=== PATIENT | male | born 1970 | race American Indian/Alaskan Native ===

== ENCOUNTER 2020-06-07 21:36 | Emergency (ER) | payer MEDICAID, OTHER ==
--- NOTE | 2020-06-07 21:59 | EDM.PDOC ---
ED HPI GENERAL MEDICAL PROBLEM - General Chief Complaint: ENT Problem Stated Complaint: SORE THROAT, SHORT OF BREATHE Time Seen by Provider: 06/07/20 21:58 Source of Information: Reports: Patient, RN, RN Notes Reviewed History Limitations: Reports: No Limitations - History of Present Illness INITIAL COMMENTS - FREE TEXT/NARRATIVE: Patient is a 49-year-old male who presents to ER with complaint of sore throat and white patches all over the mouth and throat. He states 1 week ago Tuesday he was seen in the clinic at [facility] and was given a penicillin shot. He states he has rapid strep was negative at that time as well. He states the penicillin did help for a few days but pain and white patches in the mouth returned and are worse. Patient states he is a smoker. States he has been swishing with water and salt. Denies any other symptoms such as fever chills, nausea, vomiting, diarrhea. He states he is quite hungry and thirsty but it is difficult and painful to swallow. Onset: Gradual Throat Pain Score (Numeric/FACES): 10 - Related Data Allergies Allergy/AdvReac Type Severity Reaction Status Date / Time No Known Allergies Allergy Verified 06/07/20 21:50 Home Meds: Home Meds Acetaminophen [Tylenol Extra Strength] 1,000 mg PO TID PRN 02/16/14 [History] Past Medical History - Past Health History Medical/Surgical History: Denies Medical/Surgical History Hematologic History: Reports: Iron Deficiency Social & Family History - Tobacco Use Tobacco Use Status *Q: Current Every Day Tobacco User Years of Tobacco use: 25 Packs/Tins Daily: 1.5 - Caffeine Use Caffeine Use: Reports: None - Recreational Drug Use Recreational Drug Use: No ED ROS ENT - Review of Systems Review Of Systems: Comprehensive ROS is negative, except as noted in HPI. ED EXAM, ENT - Physical Exam Exam: See Below Exam Limited By: No Limitations General Appearance: Alert, WD/WN, No Apparent Distress Eye Exam: Bilateral Eye: EOMI, Normal Inspection Ears: Normal External Exam, Hearing Grossly Normal Nose: Normal Inspection Mouth/Throat: Oral Ulcers (Scattered white patches throughout the mouth and throat), Pharyngeal Erythema, Throat Pain, Tonsillar Erythema, Tonsillar Exudates Head: Atraumatic, Normocephalic Neck: Normal Inspection, Supple, Non-Tender, Full Range of Motion Respiratory/Chest: No Respiratory Distress, Lungs Clear, Normal Breath Sounds, No Accessory Muscle Use, Chest Non-Tender Cardiovascular: Normal Peripheral Pulses, Regular Rate, Rhythm, No Edema, No Gallop, No JVD, No Murmur, No Rub GI/Abdominal: Normal Bowel Sounds, Soft, Non-Tender (Male) Exam: Deferred Rectal (Males) Exam: Deferred Back: Normal Inspection, Full Range of Motion Extremities: Normal Inspection, Normal Range of Motion, Non-Tender, No Pedal Edema, Normal Capillary Refill Neurological: Alert, Oriented, CN II-XII Intact, Normal Cognition, Normal Gait, Normal Reflexes, No Motor/Sensory Deficits Psychiatric: Normal Affect, Normal Mood Skin: Warm, Dry, Intact, Normal Color, No Rash Lymphatic: No Adenopathy Course - Vital Signs Last Recorded V/S: Last Vital Signs Temp 98.4 F 06/07/20 21:46 Pulse 124 H 06/07/20 21:46 Resp 20 06/07/20 21:46 BP 121/76 06/07/20 21:46 Pulse Ox 94 L 06/07/20 21:46 - Orders/Labs/Meds Orders: Active Orders 24 hr Category Date Time Status CULTURE STREP A CONFIRMATION [] Stat Lab 06/07/20 21:40 Results STREP SCRN A RAPID W CULT CONF [] Stat Lab 06/07/20 21:40 Results Meds: Medications Discontinued Medications Generic Name Dose Route Start Last Admin Trade Name Gayathri PRN Reason Stop Dose Admin Fluconazole 200 mg 06/07/20 22:11 06/07/20 22:21 Diflucan PO 06/07/20 22:12 200 mg ONETIME ONE Administration Departure - Departure Time of Disposition: 22:15 Disposition: Home, Self-Care 01 Condition: Good Clinical Impression: Oral candidiasis - Discharge Information *PRESCRIPTION DRUG MONITORING PROGRAM REVIEWED*: No *COPY OF PRESCRIPTION DRUG MONITORING REPORT IN PATIENT AVERY: No Instructions: Oral Thrush, Adult, [id number] Forms: ED Department Discharge Additional Instructions: RX: Diflucan, one daily by mouth for 14 days (take with food if possible) Follow up with your primary care facility if no improvement Continue swishing and spitting with water Sepsis Event Note (ED) - Evaluation Sepsis Screening Result: No Definite Risk - Focused Exam Vital Signs: Vital Signs Temp Pulse Resp BP Pulse Ox 06/07/20 21:46 98.4 F 124 H 20 121/76 94 L - My Orders Last 24 Hours: My Active Orders 06/07/20 21:40 CULTURE STREP A CONFIRMATION [RM] Stat STREP SCRN A RAPID W CULT CONF [] Stat - Assessment/Plan Last 24 Hours: My Active Orders 06/07/20 21:40 CULTURE STREP A CONFIRMATION [RM] Stat STREP SCRN A RAPID W CULT CONF [RM] Stat
[2020-06-07] MEDS ORDERED: Fluconazole 100 MG Tab PO ONE (22:11)
[2020-06-07 22:22] VITALS: BP 121/76; PULSE 124
== END 2020-06-07 22:22 | disposition home or self-care (01) ==
LOC: DL.ED 21:36
DX: B37.0 Candidal stomatitis (principal); Z72.0 Tobacco use
CPT/HCPCS: 87081; 87430; 99283; A9270

== ENCOUNTER 2020-06-09 04:57 | Emergency (ER) | payer MEDICAID, OTHER ==
[2020-06-09 05:04] VITALS: BP 125/79; PULSE 115
--- NOTE | 2020-06-09 05:28 | EDM.PDOC ---
ED HPI GENERAL MEDICAL PROBLEM - General Chief Complaint: General Stated Complaint: HANDS CRAMPING, HIPS FEEL LIKE THER GOING TO CRAMP Time Seen by Provider: 06/09/20 05:05 Source of Information: Reports: Patient, RN, RN Notes Reviewed History Limitations: Reports: No Limitations - History of Present Illness INITIAL COMMENTS - FREE TEXT/NARRATIVE: Patient is a 49-year-old male who presents to ER with complaint of bilateral hand cramping that began about 30 minutes prior to arrival. Patient states he was cleaning his kitchen and trying to open something when one of his hand started to cramp, and the other 1 started to cramp. He states he was unable to get the muscle cramps to stop. He did take Tylenol. Upon arrival to the ER, the hands are no longer cramping. He states he does feel as if his hips were going to begin to cramp, but they did not. Patient has been taking Diflucan for the past 2 days for oral candidiasis. When looking at references this is not listed as a side effect of the Diflucan. Onset: Today, Sudden - Related Data Allergies Allergy/AdvReac Type Severity Reaction Status Date / Time No Known Allergies Allergy Verified 06/07/20 21:50 Home Meds: Home Meds Acetaminophen [Tylenol Extra Strength] 1,000 mg PO TID PRN 02/16/14 [History] Past Medical History - Past Health History Medical/Surgical History: Denies Medical/Surgical History Hematologic History: Reports: Iron Deficiency - Infectious Disease History Infectious Disease History: Reports: Novel Coronavirus Social & Family History - Tobacco Use Tobacco Use Status *Q: Current Every Day Tobacco User Years of Tobacco use: 25 Packs/Tins Daily: 1.5 Second Hand Smoke Exposure: Yes - Caffeine Use Caffeine Use: Reports: None - Recreational Drug Use Recreational Drug Use: Yes Drug Use in Last 12 Months: Yes Recreational Drug Type: Reports: Methamphetamine ED ROS GENERAL - Review of Systems Review Of Systems: Comprehensive ROS is negative, except as noted in HPI. ED EXAM, GENERAL - Physical Exam Exam: See Below Exam Limited By: No Limitations General Appearance: Alert, WD/WN, No Apparent Distress, Anxious Eye Exam: Bilateral Eye: EOMI, Normal Inspection Ears: Normal External Exam, Hearing Grossly Normal Nose: Normal Inspection Throat/Mouth: Normal Inspection, Normal Voice, No Airway Compromise Head: Atraumatic, Normocephalic Neck: Normal Inspection, Supple, Non-Tender, Full Range of Motion Respiratory/Chest: No Respiratory Distress, Lungs Clear, Normal Breath Sounds, No Accessory Muscle Use, Chest Non-Tender Cardiovascular: Normal Peripheral Pulses, Regular Rate, Rhythm, No Edema, No Gallop, No JVD, No Murmur, No Rub Peripheral Pulses: 2+: Radial (L), Radial (R) GI/Abdominal: Normal Bowel Sounds, Soft, Non-Tender (Male) Exam: Deferred Rectal (Males) Exam: Deferred Back Exam: Normal Inspection, Full Range of Motion, NT Extremities: Normal Inspection, Normal Range of Motion, Non-Tender, Normal Capillary Refill, No Pedal Edema Neurological: Alert, Oriented, CN II-XII Intact, Normal Cognition, Normal Gait, Normal Reflexes, No Motor/Sensory Deficits Psychiatric: Normal Affect, Normal Mood, Anxious Skin Exam: Warm, Dry, Intact, Normal Color, No Rash Lymphatic: No Adenopathy Course - Vital Signs Last Recorded V/S: Last Vital Signs Temp 98.7 F 06/09/20 05:00 Pulse 115 H 06/09/20 05:00 Resp 18 06/09/20 05:00 BP 125/79 06/09/20 05:00 Pulse Ox 95 06/09/20 05:00 - Re-Assessments/Exams Free Text/Narrative Re-Assessment/Exam: 06/09/20 05:34 Patient states he had labs drawn last week at [facility]. Declines lab draw today to check electrolytes. Departure - Departure Time of Disposition: 05:27 Disposition: Home, Self-Care 01 Condition: Good Clinical Impression: Cramping of hands - Discharge Information *PRESCRIPTION DRUG MONITORING PROGRAM REVIEWED*: No *COPY OF PRESCRIPTION DRUG MONITORING REPORT IN PATIENT AVERY: No Instructions: Muscle Cramps and Spasms, [id number] Referrals: PCP,None [Primary Care Provider] - Forms: ED Department Discharge Additional Instructions: Follow up with your primary care provider for labwork if you would like to have it done Drink plenty of water Continue taking the Diflucan Sepsis Event Note (ED) - Evaluation Sepsis Screening Result: No Definite Risk - Focused Exam Vital Signs: Vital Signs Temp Pulse Resp BP Pulse Ox 06/09/20 05:00 98.7 F 115 H 18 125/79 95
== END 2020-06-09 05:33 | disposition home or self-care (01) ==
LOC: DL.ED 04:57
DX: R25.2 Cramp and spasm (principal); Z72.0 Tobacco use
CPT/HCPCS: 99283

== ENCOUNTER 2020-07-20 20:41 | Emergency (ER) | payer MEDICAID ==
[2020-07-20] MEDS ORDERED: Albuterol/Ipratropium 3.0-0.5 MG/3 ML Neb Soln ONE (20:46)
[2020-07-20 20:47] VITALS: BP 113/67; PULSE 123
[2020-07-20] MEDS ORDERED: Albuterol/Ipratropium 3.0-0.5 MG/3 ML Neb Soln NEB ONE (20:47)
[2020-07-20] MEDS ORDERED: methylPREDNISolone Sodium Succinate 125 MG/2 ML SDV IVPUSH ONE (20:47)
[2020-07-20 21:22] LABS: ANION GAP 14.2 mEq/L (7-13); CHLORIDE,CL 100 mmol/L (98-107); SODIUM,NA 134 mmol/L (136-145)
--- NOTE | 2020-07-20 21:50 | CR ---
PROCEDURE INFORMATION: Exam: XR Chest Exam date and time: 07/20/2020 9:18 PM Age: 49 years old Clinical indication: Shortness of breath and other: Newly diagnosed copd this past week, difficulty breathing past 3 days TECHNIQUE: Imaging protocol: XR of the chest Views: 1 view. COMPARISON: CT Chest wo Cont, Chest wo Cont 07/11/2020 11:26 AM FINDINGS: Lungs: Multifocal patchy airspace opacity is Khadijah throughout both lungs. Some of this is certainly chronic, however, there appears to be increasing focal airspace opacity in the periphery of the right midlung zone. Findings are concerning for possible pneumonia. Pleural spaces: Unremarkable. No pleural effusion. No pneumothorax. Heart/Mediastinum: Unremarkable. No cardiomegaly. Bones/joints: Unremarkable. IMPRESSION: Chronic appearing interstitial change with widespread bronchiectasis and bullous change within the lungs. When compared to the previous CT scan, there is increasing airspace opacity within the periphery of the right midlung zone. Pneumonia is possible.
[2020-07-20] MEDS ORDERED: Piperacillin/Tazobactam 3.375 GM in Sodium Chloride 0.9% 100 ML IV ONE (22:45)
[2020-07-20] MEDS ORDERED: Sodium Chloride 0.9% 1,000 ML IV ONE (22:47)
[2020-07-20] MEDS ORDERED: Iopamidol 755 Mg/ML 100 ML Bottle IVPUSH ONE (22:48)
--- NOTE | 2020-07-20 22:51 | EDM.PDOC ---
ED HPI GENERAL MEDICAL PROBLEM - General Chief Complaint: Respiratory Problem Stated Complaint: COPD, NOT GETTING ENOUGH AIR Time Seen by Provider: 07/20/20 20:45 Source of Information: Reports: Patient, Old Records, RN, RN Notes Reviewed History Limitations: Reports: Respiratory Distress - History of Present Illness INITIAL COMMENTS - FREE TEXT/NARRATIVE: Patient presents to the ED via personal vehicle with complaints of shortness of breath. The patient states he was diagnosed with COPD about five days ago, 07/16/20, and was scheduled for appointments in [place] to start medications. He reports the shortness of breath has progressively worsened over the past three days; he is not on any inhalers or nebulizer treatments. He denies fever, shaking chills, vision changes, headache, dyspepsia, nausea, vomiting, or diarrhea. He does attest to chest tightness and palpitations. He states he has not smoked a cigarette since his COPD diagnosis and was a previous pack-a-day smoker. He denies alcohol or recreational drug use. The patient states he had an active COVID infection in April 2020; he has not received a COVID vaccination at this time. - Related Data Allergies Allergy/AdvReac Type Severity Reaction Status Date / Time No Known Allergies Allergy Verified 06/07/20 21:50 Home Meds: Home Meds . [No Known Home Meds] 07/20/20 [History] Past Medical History - Past Health History Medical/Surgical History: Denies Medical/Surgical History Respiratory History: Reports: COPD Hematologic History: Reports: Iron Deficiency - Infectious Disease History Infectious Disease History: Reports: Novel Coronavirus Social & Family History - Tobacco Use Tobacco Use Status *Q: Former Tobacco User Used Tobacco, but Quit: Yes Month/Year Tobacco Last Used: june 2020 Second Hand Smoke Exposure: No - Caffeine Use Caffeine Use: Reports: None - Recreational Drug Use Recreational Drug Use: No ED ROS GENERAL - Review of Systems Review Of Systems: Comprehensive ROS is negative, except as noted in HPI. ED EXAM, GENERAL - Physical Exam Exam: See Below Exam Limited By: Respiratory Distress General Appearance: Alert, Anxious, Moderate Distress (Increased respiratory effort) Eye Exam: Bilateral Eye: EOMI, Normal Inspection, PERRL (3mm) Ears: Normal External Exam, Normal Canal, Hearing Grossly Normal, Other (Cerumen impaction, bilaterally) Ear Exam: Bilateral Ear: Auricle Normal, Canal Normal, Other (Cerumen impaction) Nose: Normal Inspection, Normal Mucosa, No Blood Throat/Mouth: Normal Inspection, Normal Voice, No Airway Compromise, Other (+2 tonsillar swelling; No exudates or erythema) Head: Atraumatic, Normocephalic Neck: Normal Inspection, Supple, Non-Tender, Full Range of Motion. No: Lymphadenopathy (L), Lymphadenopathy (R), Tender Lateral, Tender Midline Respiratory/Chest: Respiratory Distress, Decreased Breath Sounds, Accessory Muscle Use. No: Crackles, Rales, Rhonchi, Wheezing, Stridor Cardiovascular: Normal Peripheral Pulses, Regular Rate, Rhythm, No Edema, No Gallop, No JVD, No Murmur, No Rub, Tachycardia Peripheral Pulses: 2+: Radial (L), Radial (R) GI/Abdominal: Normal Bowel Sounds, Soft, Non-Tender, No Distention, No Abnormal Bruit, No Mass, Pelvis Stable (Male) Exam: Deferred Rectal (Males) Exam: Deferred Back Exam: Normal Inspection, Full Range of Motion. No: CVA Tenderness (L), CVA Tenderness (R) Extremities: Normal Inspection, Normal Range of Motion, Non-Tender, Normal Capillary Refill, No Pedal Edema Neurological: Alert, Oriented, CN II-XII Intact, Normal Cognition, No Motor/Sensory Deficits Psychiatric: Anxious Skin Exam: Warm, Intact, No Rash, Diaphoretic, Pallor. No: Ecchymosis, Erythema, Jaundice, Mottled, Petechiae #1 Interpretation EKG Date: 07/21/20 Time: 21:03 Rhythm: Other (Sinus Tachycardia) Rate (Beats/Min): 110 Holden: Normal P-Wave: Present QRS: Normal ST-T: Normal QT: Normal Comparison: NA - No Prior EKG EKG Interpretation Comments: Sinus Tachycardia; No evidence of myocardial ischemia. Course - Vital Signs Last Recorded V/S: Last Vital Signs Temp 100.2 F 07/20/20 20:44 Pulse 123 H 07/20/20 20:44 Resp 24 H 07/20/20 20:44 BP 113/67 07/20/20 20:44 Pulse Ox 96 07/20/20 20:44 - Orders/Labs/Meds Orders: Active Orders 24 hr Category Date Time Status EKG Documentation Completion [RC] STAT Care 04/04/21 20:48 Active RT Aerosol Therapy [RC] ASDIRECTED Care 07/20/20 20:47 Active Labs: Laboratory Tests 07/20/20 07/20/20 07/20/20 Range/Units 20:55 20:55 20:55 WBC 4.4 L (5.0-10.0) 10^3/uL RBC 4.00 L (4.6-6.2) 10^6/uL Hgb 10.8 L (14.0-18.0) g/dL Hct 32.1 L (40.0-54.0) % MCV 80.3 (80-100) fL MCH 27.0 (27.0-34.0) pg MCHC 33.6 (33.0-35.0) g/dL Plt Count 362 (150-450) 10^3/uL Neut % (Auto) 58.7 (42.2-75.2) % Lymph % (Auto) 23.6 (20.5-50.1) % [place] % (Auto) 14.3 H (2-8) % Eos % (Auto) 3.2 H (1.0-3.0) % Baso % (Auto) 0.2 (0.0-1.0) % D-Dimer, Quantitative (0-400) ng/mL VBG pH (7.31-7.41) VBG pCO2 (41-51) mmHg VBG pO2 (35-42) mmHg VBG HCO3 (19-25) mmol/l VBG O2 Saturation (60-80) % VBG Base Excess ((-2)-(+3)) mmol/l O2 Delivery Device Sodium 134 L (136-145) mmol/L Potassium 4.2 (3.5-5.1) mmol/L Chloride 100 (98-107) mmol/L Carbon Dioxide 24 (21-32) mmol/L Anion Gap 14.2 H (7-13) mEq/L BUN 10 (7-18) mg/dL Creatinine 0.92 (0.70-1.30) mg/dL Est Cr Clr Drug Dosing 102.61 mL/min Estimated GFR (MDRD) > 60 BUN/Creatinine Ratio 10.9 (No establ ref range) Glucose 90 (74-99) mg/dL Lactic Acid 1.4 (0.4-2.0) mmol/L Calcium 7.7 L (8.5-10.1) mg/dL Total Bilirubin 0.3 (0.2-1.0) mg/dL AST 47 H (15-37) U/L ALT 32 (16-63) U/L Alkaline Phosphatase 120 H (46-116) U/L Troponin I < 0.017 (0.000-0.056) ng/mL Total Protein 6.6 (6.4-8.2) g/dL Albumin 1.6 L (3.4-5.0) g/dL Globulin 5.0 Albumin/Globulin Ratio 0.32 Urine Color (YELLOW) Urine Appearance (CLEAR) Urine pH (5.0-9.0) Ur Specific Adams (1.005-1.030) Urine Protein (NEGATIVE) Urine Glucose (UA) (NEGATIVE) Urine Ketones (NEGATIVE) Urine Occult Blood (NEGATIVE) Urine Nitrite (NEGATIVE) Urine Bilirubin (NEGATIVE) Urine Urobilinogen (0.2-1.0) mg/dL Ur Leukocyte Esterase (NEGATIVE) Influenza Type A RNA (NEGATIVE) Influenza Type B RNA (NEGATIVE) SARS-CoV-2 RNA (MARY) (NEGATIVE) 07/20/20 07/20/20 07/20/20 Range/Units 20:55 22:31 23:11 WBC (5.0-10.0) 10^3/uL RBC (4.6-6.2) 10^6/uL Hgb (14.0-18.0) g/dL Hct (40.0-54.0) % MCV (80-100) fL MCH (27.0-34.0) pg MCHC (33.0-35.0) g/dL Plt Count (150-450) 10^3/uL Neut % (Auto) (42.2-75.2) % Lymph % (Auto) (20.5-50.1) % [place] % (Auto) (2-8) % Eos % (Auto) (1.0-3.0) % Baso % (Auto) (0.0-1.0) % D-Dimer, Quantitative 1140 H (0-400) ng/mL VBG pH (7.31-7.41) VBG pCO2 (41-51) mmHg VBG pO2 (35-42) mmHg VBG HCO3 (19-25) mmol/l VBG O2 Saturation (60-80) % VBG Base Excess ((-2)-(+3)) mmol/l O2 Delivery Device Sodium (136-145) mmol/L Potassium (3.5-5.1) mmol/L Chloride (98-107) mmol/L Carbon Dioxide (21-32) mmol/L Anion Gap (7-13) mEq/L BUN (7-18) mg/dL Creatinine (0.70-1.30) mg/dL Est Cr Clr Drug Dosing mL/min Estimated GFR (MDRD) BUN/Creatinine Ratio (No establ ref range) Glucose (74-99) mg/dL Lactic Acid (0.4-2.0) mmol/L Calcium (8.5-10.1) mg/dL Total Bilirubin (0.2-1.0) mg/dL AST (15-37) U/L ALT (16-63) U/L Alkaline Phosphatase (46-116) U/L Troponin I (0.000-0.056) ng/mL Total Protein (6.4-8.2) g/dL Albumin (3.4-5.0) g/dL Globulin Albumin/Globulin Ratio Urine Color Yellow (YELLOW) Urine Appearance Clear (CLEAR) Urine pH 6.5 (5.0-9.0) Ur Specific Adams 1.020 (1.005-1.030) Urine Protein Negative (NEGATIVE) Urine Glucose (UA) Negative (NEGATIVE) Urine Ketones Negative (NEGATIVE) Urine Occult Blood Negative (NEGATIVE) Urine Nitrite Negative (NEGATIVE) Urine Bilirubin Negative (NEGATIVE) Urine Urobilinogen 4.0 H (0.2-1.0) mg/dL Ur Leukocyte Esterase Negative (NEGATIVE) Influenza Type A RNA Negative (NEGATIVE) Influenza Type B RNA Negative (NEGATIVE) SARS-CoV-2 RNA (MARY) Negative (NEGATIVE) 07/20/20 Range/Units 23:34 WBC (5.0-10.0) 10^3/uL RBC (4.6-6.2) 10^6/uL Hgb (14.0-18.0) g/dL Hct (40.0-54.0) % MCV (80-100) fL MCH (27.0-34.0) pg MCHC (33.0-35.0) g/dL Plt Count (150-450) 10^3/uL Neut % (Auto) (42.2-75.2) % Lymph % (Auto) (20.5-50.1) % [place] % (Auto) (2-8) % Eos % (Auto) (1.0-3.0) % Baso % (Auto) (0.0-1.0) % D-Dimer, Quantitative (0-400) ng/mL VBG pH 7.50 H (7.31-7.41) VBG pCO2 27 L (41-51) mmHg VBG pO2 49 H (35-42) mmHg VBG HCO3 21 (19-25) mmol/l VBG O2 Saturation 87 H (60-80) % VBG Base Excess -0.7 ((-2)-(+3)) mmol/l O2 Delivery Device Room air Sodium (136-145) mmol/L Potassium (3.5-5.1) mmol/L Chloride (98-107) mmol/L Carbon Dioxide (21-32) mmol/L Anion Gap (7-13) mEq/L BUN (7-18) mg/dL Creatinine (0.70-1.30) mg/dL Est Cr Clr Drug Dosing mL/min Estimated GFR (MDRD) BUN/Creatinine Ratio (No establ ref range) Glucose (74-99) mg/dL Lactic Acid (0.4-2.0) mmol/L Calcium (8.5-10.1) mg/dL Total Bilirubin (0.2-1.0) mg/dL AST (15-37) U/L ALT (16-63) U/L Alkaline Phosphatase (46-116) U/L Troponin I (0.000-0.056) ng/mL Total Protein (6.4-8.2) g/dL Albumin (3.4-5.0) g/dL Globulin Albumin/Globulin Ratio Urine Color (YELLOW) Urine Appearance (CLEAR) Urine pH (5.0-9.0) Ur Specific [place] (1.005-1.030) Urine Protein (NEGATIVE) Urine Glucose (UA) (NEGATIVE) Urine Ketones (NEGATIVE) Urine Occult Blood (NEGATIVE) Urine Nitrite (NEGATIVE) Urine Bilirubin (NEGATIVE) Urine Urobilinogen (0.2-1.0) mg/dL Ur Leukocyte Esterase (NEGATIVE) Influenza Type A RNA (NEGATIVE) Influenza Type B RNA (NEGATIVE) SARS-CoV-2 RNA (MARY) (NEGATIVE) Meds: Medications Discontinued Medications Generic Name Dose Route Start Last Admin Trade Name Gayathri PRN Reason Stop Dose Admin Albuterol/Ipratropium 3 ml 07/20/20 20:47 07/20/20 20:48 Albuterol/Ipratropium 3.0-0.5 Mg/3 Ml Neb Soln NEB 07/20/20 20:48 3 ml ONETIME ONE Administration Albuterol/Ipratropium Confirm 07/20/20 20:46 07/20/20 20:52 Albuterol/Ipratropium 3.0-0.5 Mg/3 Ml Neb Soln Administered 07/20/20 20:47 Not Given Dose 3 ml .ROUTE .STK-MED ONE Piperacillin Sod/Tazobactam 100 mls @ 200 mls/hr 07/20/20 22:45 07/20/20 23:00 Sod 3.375 gm/ Sodium Chloride IV 07/20/20 23:14 200 mls/hr ONETIME ONE Administration Vancomycin HCl 1.25 gm/ Sodium 250 mls @ 167 mls/hr 07/20/20 22:46 07/20/20 23:46 Chloride IV 07/21/20 00:15 167 mls/hr ONETIME ONE Administration Sodium Chloride 1,000 mls @ 999 mls/hr 07/20/20 22:47 07/20/20 22:55 Normal Saline IV 07/20/20 23:47 999 mls/hr .BOLUS ONE Administration Iopamidol 100 ml 07/20/20 22:48 07/20/20 23:14 Iopamidol 755 Mg/Ml 100 Ml Bottle IVPUSH 07/20/20 22:49 100 ml ONETIME ONE Administration Methylprednisolone Sodium Succinate 125 mg 07/20/20 20:47 07/20/20 20:57 Methylprednisolone Sodium Succinate 125 Mg/2 Ml Sdv IVPUSH 07/20/20 20:48 125 mg ONETIME ONE Administration - Re-Assessments/Exams Free Text/Narrative Re-Assessment/Exam: 07/21/20 Patient reports minimal improvement in work of breathing following DuoNeb and Solu-Medrol 125mg IVP. NS 1L bolus initiated. Review of minimal available chart from [facility] reveals the patient will be seen by Dr. Leiva in ID in a few days to review treatment for HIV as well as pulmonary disease. Patient attests to recent HIV diagnosis. CXR revealed previously noted bilateral chronic bronchiectasis with a worsening opacity in the right mid-lung; cannot r/o pneumonia. WBC 4.4, RBC 4.0, Hgb 10.8; no left shift appreciated in CBC. Electrolytes WNL on CMP; Kidney function appropriate. Given presentation, history, and possible pneumonia case discussed with Dr. Sandoval who kindly agreed to accept patient for inpatient admission. Dr. Sandoval requesting d-dimer and CT for PE r/o as we are awaiting transport. Will start patient on Zosyn and Vanco as well as an additional liter of NS. Plan of care discussed with patient who verbalized understanding and agreement. Departure - Departure Time of Disposition: 00:45 Disposition: DC/Tfer to [facility] 02 Condition: Fair Clinical Impression: Elevated d-dimer Sepsis Qualifiers: Sepsis type: sepsis due to unspecified organism Sepsis acute organ dysfunction status: unspecified Qualified Code(s): A41.9 - Sepsis, unspecified organism Pneumonia Qualifiers: Pneumonia type: due to unspecified organism Laterality: right Lung location: middle lobe of lung Qualified Code(s): J18.9 - Pneumonia, unspecified organism - Discharge Information Referrals: PCP,None [Primary Care Provider] - Forms: ED Department Discharge, Interfacility Transfer [facility] Sepsis Event Note (ED) - Evaluation Sepsis Screening Result: No Definite Risk - Focused Exam Vital Signs: Vital Signs Temp Pulse Resp BP Pulse Ox 07/20/20 20:44 100.2 F 123 H 24 H 113/67 96 - My Orders Last 24 Hours: My Active Orders 07/20/20 20:47 RT Aerosol Therapy [RC] ASDIRECTED 07/20/20 20:48 EKG Documentation Completion [RC] STAT - Assessment/Plan Last 24 Hours: My Active Orders 07/20/20 20:47 RT Aerosol Therapy [RC] ASDIRECTED 07/20/20 20:48 EKG Documentation Completion [RC] STAT
[2020-07-20 23:26] LABS: CORONAVIRUS COVID-19 NAA NEGATIVE (NEGATIVE)
[2020-07-20 23:44] LABS: O2 DELIVERY DEVICE ROOM AIR
[2020-07-20 23:45] LABS: O2 SATURATION VENOUS 87 % (60-80); PCO2 VENOUS 27 mmHg (41-51); PO2 VENOUS 49 mmHg (35-42)
[2020-07-20 23:46] LABS: BASE EXCESS VENOUS -0.7 mmol/l ((-2)-(+3)); BICARBONATE,VENOUS 21 mmol/l (19-25)
--- NOTE | 2020-07-21 00:32 | CT ---
PROCEDURE INFORMATION: Exam: CTA Chest With Contrast Exam date and time: 07/20/2020 11:34 PM Age: 49 years old Clinical indication: Shortness of breath and other: D-dimer 1140; Additional info: R/O pe TECHNIQUE: Imaging protocol: Computed tomographic angiography of the chest with contrast. Radiation optimization: All CT scans at this facility use at least one of these dose optimization techniques: automated exposure control; mA and/or kV adjustment per patient size (includes targeted exams where dose is matched to clinical indication); or iterative reconstruction. Contrast material: [id number]; Contrast volume: 71 ml; Contrast route: INTRAVENOUS (IV); COMPARISON: CT Chest wo Cont 07/11/2020 11:26 AM FINDINGS: Pulmonary arteries: Normal. No pulmonary emboli. Aorta: Unremarkable. No aortic aneurysm. No aortic dissection. Lungs: Redemonstration of extensive architectural distortion with bronchiectasis and cystic changes predominantly involving upper lobes. Progressive airspace disease predominantly involving right lung with increasing airspace and ground-glass opacities. Stable centrilobular pulmonary nodules in the bilateral lower lobes as well as the right middle lobe. Pleural spaces: Unremarkable. No pneumothorax. No pleural effusion. Heart: Unremarkable. No cardiomegaly. No pericardial effusion. Lymph nodes: Calcified left hilar lymph nodes. Gallbladder and bile ducts: Cholelithiasis. No specific evidence of acute cholecystitis. Bones/joints: Mild multilevel degenerative disease of the thoracic spine. Soft tissues: Unremarkable. IMPRESSION: No acute pulmonary embolic disease. Progressive airspace disease predominantly involving right lung with increasing airspace and ground-glass opacities. Stable centrilobular pulmonary nodules in the bilateral lower lobes as well as the right middle lobe. Redemonstration of extensive architectural distortion with bronchiectasis and cystic changes predominantly involving upper lobes.
== END 2020-07-21 00:34 ==
LOC: DL.ED 20:41
DX: A41.9 Sepsis, unspecified organism (principal); R65.20 Severe sepsis without septic shock; J18.9 Pneumonia, unspecified organism; R79.1 Abnormal coagulation profile; J44.9 Chronic obstructive pulmonary disease, unspecified; H61.23 Impacted cerumen, bilateral; Z20.822 Contact with and (suspected) exposure to COVID-19; Z87.891 Personal history of nicotine dependence
CPT/HCPCS: 0240U; 36415; 71045; 71260; 80053; 81003; 82803; 83605; 84484; 85025; 85379; 93005; 93010; 96365; 96367; 96375; 99284; 99285-25; J2543; J2930; J3370; J7030; J7050; J7620-GY; Q9967

== ENCOUNTER 2020-07-23 04:52 | Emergency (ER) | payer MEDICAID ==
[2020-07-23] MEDS ORDERED: methylPREDNISolone Sodium Succinate 125 MG/2 ML SDV IVPUSH ONE (05:11)
[2020-07-23] MEDS ORDERED: Albuterol/Ipratropium 3.0-0.5 MG/3 ML Neb Soln NEB ONE (05:11)
[2020-07-23 05:15] VITALS: BP 114/75; PULSE 115
--- NOTE | 2020-07-23 05:23 | EDM.PDOC ---
<Sue Jones - Last Filed: 07/23/20 06:36> ED HPI GENERAL MEDICAL PROBLEM - General Chief Complaint: Respiratory Problem Time Seen by Provider: 07/23/20 05:00 Source of Information: Reports: Patient, EMS, EMS Notes Reviewed, RN, RN Notes Reviewed History Limitations: Reports: Respiratory Distress - History of Present Illness INITIAL COMMENTS - FREE TEXT/NARRATIVE: Patient is a 49-year-old male who presents to ER per [facility] with complaint of shortness of breath. Patient was seen in the ER on July 20 and transferred to [place] at that time. Patient states he is newly diagnosed with HIV and COPD. Was found to have pneumonia on July 20 as well as a mass in both lungs. Patient states he had Covid in April and has not received his vaccinations yet. Patient states he did have a thoracentesis done where they drained quite a bit of fluid from his lungs. Patient states he was told that he could eat after that procedure, and never did receive any food. He states he was very hungry and he left AMA. Patient states he got to his home around midnight this evening and states he was doing fine with the breathing until he got home. He states at that time he became very short of breath. States he has a productive cough. Upon EMS arrival, patient was 88% on room air. Currently on 4 L of oxygen, patient is 94%. Patient denies any recent fever chills, nausea, vomiting, diarrhea. Onset: Gradual - Related Data Allergies Allergy/AdvReac Type Severity Reaction Status Date / Time No Known Allergies Allergy Verified 07/23/20 06:40 Home Meds: Home Meds . [No Known Home Meds] 07/20/20 [History] Past Medical History - Past Health History Medical/Surgical History: Denies Medical/Surgical History Respiratory History: Reports: COPD Hematologic History: Reports: Iron Deficiency Immunologic History: Reports: HIV - Infectious Disease History Infectious Disease History: Reports: Novel Coronavirus Social & Family History - Tobacco Use Tobacco Use Status *Q: Current Status Unknown Second Hand Smoke Exposure: No - Caffeine Use Caffeine Use: Reports: None - Recreational Drug Use Recreational Drug Use Frequency: Patient Refuses To Answer ED ROS GENERAL - Review of Systems Review Of Systems: Comprehensive ROS is negative, except as noted in HPI. ED EXAM, GENERAL - Physical Exam Exam: See Below Exam Limited By: Respiratory Distress General Appearance: Alert, WD/WN, Anxious, Moderate Distress Eye Exam: Bilateral Eye: EOMI, Normal Inspection Ears: Normal External Exam, Hearing Grossly Normal Nose: Normal Inspection Throat/Mouth: Normal Inspection, Normal Voice, No Airway Compromise Head: Atraumatic, Normocephalic Neck: Normal Inspection, Supple, Non-Tender, Full Range of Motion Respiratory/Chest: Respiratory Distress, Decreased Breath Sounds, Accessory Muscle Use Cardiovascular: Normal Peripheral Pulses, Regular Rate, Rhythm, No Edema, No Gallop, No JVD, No Murmur, No Rub, Tachycardia Peripheral Pulses: 2+: Radial (L), Radial (R) GI/Abdominal: Normal Bowel Sounds, Soft, Non-Tender (Male) Exam: Deferred Rectal (Males) Exam: Deferred Back Exam: Normal Inspection, Full Range of Motion, NT Extremities: Normal Inspection, Normal Range of Motion, Non-Tender, Normal Capillary Refill, No Pedal Edema Neurological: Alert, Oriented, CN II-XII Intact, Normal Cognition, Normal Gait, Normal Reflexes, No Motor/Sensory Deficits Psychiatric: Normal Affect, Normal Mood, Anxious Skin Exam: Warm, Dry, Intact, Normal Color, No Rash Lymphatic: No Adenopathy Course - Radiology Interpretation Free Text/Narrative:: Chest xray: PROCEDURE INFORMATION: Exam: XR Chest Exam date and time: 07/23/2020 5:43 AM Age: 49 years old Clinical indication: Other: Chest pain TECHNIQUE: Imaging protocol: XR of the chest. Views: 1 view. COMPARISON: CR Chest 1V Frontal 07/20/2020 9:18 PM FINDINGS: Lungs: Stable-mild increase in diffuse interstitial opacities. Stable bullous changes present in the upper lobes. Pleural spaces: Unremarkable. No pleural effusion. No pneumothorax. Heart/Mediastinum: Unremarkable. No cardiomegaly. Bones/joints: Unremarkable. IMPRESSION: Stable-mild increase in diffuse interstitial opacities. Thank you for allowing us to participate in the care of your patient. Dictated and Authenticated by: Jose Lane DO 07/23/2020 6:00 AM Central Time ([place] & [place]) see rad report - Re-Assessments/Exams Free Text/Narrative Re-Assessment/Exam: 07/23/20 06:49 Discussed patient case with Dr. Perez who agreed to accept the patient for transfer to . Departure - Departure Disposition: DC/Tfer to [facility] 02 Condition: Serious Clinical Impression: Respiratory distress COPD (chronic obstructive pulmonary disease) Qualifiers: COPD type: unspecified COPD Qualified Code(s): J44.9 - Chronic obstructive pulmonary disease, unspecified HIV (human immunodeficiency virus infection) Qualifiers: HIV symptom status: unspecified Qualified Code(s): B20 - Human immunodeficiency virus [HIV] disease - Discharge Information *PRESCRIPTION DRUG MONITORING PROGRAM REVIEWED*: No *COPY OF PRESCRIPTION DRUG MONITORING REPORT IN PATIENT AVERY: No Forms: ED Department Discharge, Interfacility Transfer EMTALA Sepsis Event Note (ED) - Evaluation Sepsis Screening Result: No Definite Risk <Sukhwinder Hutton - Last Filed: 07/23/20 07:45> Course - Vital Signs Last Recorded V/S: Last Vital Signs Temp 99.8 F 07/23/20 04:53 Pulse 115 H 07/23/20 04:53 Resp 22 H 07/23/20 04:53 BP 114/75 07/23/20 04:53 Pulse Ox 97 07/23/20 04:53 - Orders/Labs/Meds Orders: Active Orders 24 hr Category Date Time Status RT Aerosol Therapy [RC] ASDIRECTED Care 07/23/20 05:12 Active DRUG SCREEN URINE BIORAD [URCHEM] Stat Lab 07/23/20 06:46 Ordered URINALYSIS W/MICROSCOPIC [UA W/MICROSCOPIC] [URIN] Stat Lab 07/23/20 06:46 O rdered Labs: Laboratory Tests 07/23/20 07/23/20 07/23/20 Range/Units 05:18 05:18 05:18 WBC 9.8 (5.0-10.0) 10^3/uL RBC 3.68 L (4.6-6.2) 10^6/uL Hgb 10.0 L (14.0-18.0) g/dL Hct 30.1 L (40.0-54.0) % MCV 81.8 (80-100) fL MCH 27.2 (27.0-34.0) pg MCHC 33.2 (33.0-35.0) g/dL Plt Count 435 (150-450) 10^3/uL Neut % (Auto) 87.5 H (42.2-75.2) % Lymph % (Auto) 5.2 L (20.5-50.1) % [place] % (Auto) 7.2 (2-8) % Eos % (Auto) 0.0 L (1.0-3.0) % Baso % (Auto) 0.1 (0.0-1.0) % ABG pH (7.35-7.45) ABG pCO2 (35-45) mmHg ABG pO2 (70-100) mmHg ABG HCO3 (22-26) mmol/L ABG O2 Saturation (95-100) % ABG Base Excess ((-2)-(+3)) mmol/L Lonnie Test O2 Delivery Device Sodium 139 (136-145) mmol/L Potassium 2.9 L (3.5-5.1) mmol/L Chloride 104 (98-107) mmol/L Carbon Dioxide 22 (21-32) mmol/L Anion Gap 15.9 H (7-13) mEq/L BUN 11 (7-18) mg/dL Creatinine 0.87 (0.70-1.30) mg/dL Est Cr Clr Drug Dosing 118.63 mL/min Estimated GFR (MDRD) > 60 BUN/Creatinine Ratio 12.6 (No establ ref range) Glucose 74 (70-99) mg/dL Lactic Acid 3.5 H* (0.4-2.0) mmol/L Calcium 7.4 L (8.5-10.1) mg/dL Magnesium (1.8-2.4) mg/dL Total Bilirubin 0.5 (0.2-1.0) mg/dL AST 66 H (15-37) U/L ALT 53 (16-63) U/L Alkaline Phosphatase 89 (46-116) U/L B-Natriuretic Peptide 34 (0-100) pg/ml Total Protein 5.6 L (6.4-8.2) g/dL Albumin 1.6 L (3.4-5.0) g/dL Globulin 4.0 Albumin/Globulin Ratio 0.40 07/23/20 07/23/20 Range/Units 05:18 06:30 WBC (5.0-10.0) 10^3/uL RBC (4.6-6.2) 10^6/uL Hgb (14.0-18.0) g/dL Hct (40.0-54.0) % MCV (80-100) fL MCH (27.0-34.0) pg MCHC (33.0-35.0) g/dL Plt Count (150-450) 10^3/uL Neut % (Auto) (42.2-75.2) % Lymph % (Auto) (20.5-50.1) % [place] % (Auto) (2-8) % Eos % (Auto) (1.0-3.0) % Baso % (Auto) (0.0-1.0) % ABG pH 7.45 (7.35-7.45) ABG pCO2 29 L (35-45) mmHg ABG pO2 64 L (70-100) mmHg ABG HCO3 20.0 L (22-26) mmol/L ABG O2 Saturation 93 L (95-100) % ABG Base Excess -3 L ((-2)-(+3)) mmol/L Lonnie Test Performed O2 Delivery Device Nasal cannula Sodium (136-145) mmol/L Potassium (3.5-5.1) mmol/L Chloride (98-107) mmol/L Carbon Dioxide (21-32) mmol/L Anion Gap (7-13) mEq/L BUN (7-18) mg/dL Creatinine (0.70-1.30) mg/dL Est Cr Clr Drug Dosing mL/min Estimated GFR (MDRD) BUN/Creatinine Ratio (No establ ref range) Glucose (70-99) mg/dL Lactic Acid (0.4-2.0) mmol/L Calcium (8.5-10.1) mg/dL Magnesium 1.6 L (1.8-2.4) mg/dL Total Bilirubin (0.2-1.0) mg/dL AST (15-37) U/L ALT (16-63) U/L Alkaline Phosphatase (46-116) U/L B-Natriuretic Peptide (0-100) pg/ml Total Protein (6.4-8.2) g/dL Albumin (3.4-5.0) g/dL Globulin Albumin/Globulin Ratio Meds: Medications Discontinued Medications Generic Name Dose Route Start Last Admin Trade Name Freq PRN Reason Stop Dose Admin Albuterol/Ipratropium 3 ml 07/23/20 05:11 07/23/20 05:22 Albuterol/Ipratropium 3.0-0.5 Mg/3 Ml Neb Soln NEB 07/23/20 05:12 3 ml ONETIME ONE Administration Potassium Chloride 10 meq/ 100 mls @ 100 mls/hr 07/23/20 05:49 07/23/20 06:14 Premix IV 07/23/20 06:48 100 mls/hr ONETIME ONE Administration Methylprednisolone Sodium Succinate 125 mg 07/23/20 05:11 07/23/20 05:22 Methylprednisolone Sodium Succinate 125 Mg/2 Ml Sdv IVPUSH 07/23/20 05:12 125 mg ONETIME ONE Administration Departure - Departure Time of Disposition: 07:45 Sepsis Event Note (ED) - Focused Exam Vital Signs: Vital Signs Temp Pulse Resp BP Pulse Ox 07/23/20 04:53 99.8 F 115 H 22 H 114/75 97
[2020-07-23 05:40] LABS: ANION GAP 15.9 mEq/L (7-13); CHLORIDE,CL 104 mmol/L (98-107); SODIUM,NA 139 mmol/L (136-145)
[2020-07-23] MEDS ORDERED: Potassium Chloride 10 MEQ in Premix Bag 1 BAG IV ONE (05:49)
--- NOTE | 2020-07-23 06:01 | CR ---
PROCEDURE INFORMATION: Exam: XR Chest Exam date and time: 07/23/2020 5:43 AM Age: 49 years old Clinical indication: Other: Chest pain TECHNIQUE: Imaging protocol: XR of the chest. Views: 1 view. COMPARISON: CR Chest 1V Frontal 07/20/2020 9:18 PM FINDINGS: Lungs: Stable-mild increase in diffuse interstitial opacities. Stable bullous changes present in the upper lobes. Pleural spaces: Unremarkable. No pleural effusion. No pneumothorax. Heart/Mediastinum: Unremarkable. No cardiomegaly. Bones/joints: Unremarkable. IMPRESSION: Stable-mild increase in diffuse interstitial opacities.
[2020-07-23 06:37] LABS: BASE EXCESS ARTERIAL -3 mmol/L ((-2)-(+3)); O2 DELIVERY DEVICE NASAL CANNULA; O2 SATURATION ARTERIAL 93 % (95-100); PCO2 ARTERIAL 29 mmHg (35-45); PO2 ARTERIAL 64 mmHg (70-100)
[2020-07-23 06:41] LABS: ALLEN TEST PERFORMED
== END 2020-07-23 07:47 ==
LOC: DL.ED 04:52
DX: J44.9 Chronic obstructive pulmonary disease, unspecified (principal); B20 Human immunodeficiency virus [HIV] disease; Z86.16 Personal history of COVID-19
CPT/HCPCS: 36415; 36600; 71045; 80053; 82803; 83605; 83735; 83880; 85025; 96365; 96366; 96375; 99285; J2930; J3480; 99284; J7620-GY

== ENCOUNTER 2020-10-05 10:53 | Emergency (ER) | payer MEDICAID ==
[2020-10-05 11:54] VITALS: BP 101/74; PULSE 106
[2020-10-05] MEDS ORDERED: Lactated Ringers 1,000 ML IV ONE (12:10)
[2020-10-05] MEDS ORDERED: Sodium Chloride 0.9% 10 ML Syringe FLUSH PRN (12:10)
[2020-10-05 12:51] LABS: ANION GAP 13.4 mEq/L (7-13); CHLORIDE,CL 101 mmol/L (98-107); SODIUM,NA 136 mmol/L (136-145)
--- NOTE | 2020-10-05 13:25 | CR ---
PROCEDURE INFORMATION: Exam: XR Chest Exam date and time: 10/05/2020 12:35 PM Age: 49 years old Clinical indication: Dyspnea; Additional info: Dyspnea; Recent severe covid-19 TECHNIQUE: Imaging protocol: XR of the chest. Views: 2 views. COMPARISON: CR Chest 1V Frontal 07/23/2020 5:43:01 AM FINDINGS: Lungs: Hazy bilateral airspace consolidation. Aeration is improved since the previous study. Pleural spaces: Large right pneumothorax. The pneumothorax comprises 50% of the total lung volume. The finding is new since the previous study. Heart/Mediastinum: Unremarkable. No cardiomegaly. Bones/joints: Unremarkable. IMPRESSION: 1. Large right pneumothorax. 2. Bilateral airspace consolidation, improved since the previous study. The study results were discussed with KRIS Lopez at 1:24 PM CDT
--- NOTE | 2020-10-05 16:16 | EDM.PDOC ---
ED HPI GENERAL MEDICAL PROBLEM - General Chief Complaint: Respiratory Problem Stated Complaint: RT SIDE HURTS Time Seen by Provider: 10/05/20 11:30 - History of Present Illness INITIAL COMMENTS - FREE TEXT/NARRATIVE: Tal is a 49-year-old man who presents with 1 day history of shortness of breath and some right-sided chest pain. He reports that earlier this spring, he was diagnosed with COVID-19. He spent a total of almost 2 months in the hospital with this, most recently was hospitalized at [facility] in [facility]. He had recurrent pneumothoraces during his stay, and had some kind of removable valves placed in his bronchi. He reports that he was due to go down to [place] in 2 weeks to have those removed. He does not have any fever today, is overall been feeling well. No nausea or vomiting, no diarrhea or constipation. Right Flank Pain Score (Numeric/FACES): 3 - Related Data Allergies Allergy/AdvReac Type Severity Reaction Status Date / Time No Known Allergies Allergy Verified 10/05/20 11:54 Home Meds: Home Meds Fluconazole [Diflucan] 200 mg PO DAILY 10/05/20 [History] Past Medical History - Past Health History Medical/Surgical History: Denies Medical/Surgical History HEENT History: Reports: Impaired Vision Other HEENT History: wears glasses Cardiovascular History: Reports: None Respiratory History: Reports: COPD Other Respiratory History: COVID pneumonia, states had denise and block placed in [place] Gastrointestinal History: Reports: None Genitourinary History: Reports: None Musculoskeletal History: Reports: None Neurological History: Reports: None Psychiatric History: Reports: None Endocrine/Metabolic History: Reports: None Hematologic History: Reports: None, Iron Deficiency Immunologic History: Reports: HIV Oncologic (Cancer) History: Reports: None Dermatologic History: Reports: None - Infectious Disease History Infectious Disease History: Reports: Chicken Pox, HIV-Human Immunodeficiency Virus, Novel Coronavirus Social & Family History - Tobacco Use Tobacco Use Status *Q: Current Every Day Tobacco User Years of Tobacco use: 28 Packs/Tins Daily: 0.5 Second Hand Smoke Exposure: No - Caffeine Use Caffeine Use: Reports: Soda - Recreational Drug Use Recreational Drug Use: No ED ROS GENERAL - Review of Systems Review Of Systems: Comprehensive ROS is negative, except as noted in HPI. ED EXAM, GENERAL - Physical Exam Exam: See Below Free Text/Narrative:: General: Tal is a 49-year-old man in no acute distress Oropharynx is clear, mucous membranes are moist Neck: Supple, no lymphadenopathy Heart: Regular rate and rhythm, 1 out of 6 systolic murmur best heard over the left sternal border Lungs: He has very diminished breath sounds in both bases, but I can hear more on the left than the right. Significant expiratory wheezing bilaterally in the upper lungs He is moving all his extremities normally Cranial nerves II through XII intact grossly PA and lateral chest x-ray shows a large 50% pneumothorax on the right lung. There are numerous other opacities which would be consistent with COVID-19 related issues Course - Vital Signs Last Recorded V/S: Last Vital Signs Temp 97.4 F 10/05/20 11:40 Pulse 106 H 10/05/20 11:40 Resp 18 10/05/20 11:40 BP 101/74 10/05/20 11:40 Pulse Ox 98 10/05/20 11:40 - Orders/Labs/Meds Labs: Laboratory Tests 10/05/20 10/05/20 10/05/20 Range/Units 12:25 12:25 12:25 WBC 3.1 L (5.0-10.0) 10^3/uL RBC 4.49 L (4.6-6.2) 10^6/uL Hgb 12.3 L D (14.0-18.0) g/dL Hct 37.6 L (40.0-54.0) % MCV 83.7 (80-100) fL MCH 27.4 (27.0-34.0) pg MCHC 32.7 L (33.0-35.0) g/dL Plt Count 298 D (150-450) 10^3/uL Neut % (Auto) 68.1 (42.2-75.2) % Lymph % (Auto) 18.6 L (20.5-50.1) % [place] % (Auto) 13.0 H (2-8) % Eos % (Auto) 0.3 L (1.0-3.0) % Baso % (Auto) 0.0 (0.0-1.0) % Sodium 136 (136-145) mmol/L Potassium 3.4 L (3.5-5.1) mmol/L Chloride 101 (98-107) mmol/L Carbon Dioxide 25 (21-32) mmol/L Anion Gap 13.4 H (7-13) mEq/L BUN 4 L (7-18) mg/dL Creatinine 0.84 (0.70-1.30) mg/dL Est Cr Clr Drug Dosing 110.06 mL/min Estimated GFR (MDRD) > 60 BUN/Creatinine Ratio 4.8 (No establ ref range) Glucose 100 H (70-99) mg/dL Lactic Acid 1.8 (0.4-2.0) mmol/L Calcium 8.5 (8.5-10.1) mg/dL Total Bilirubin 0.4 (0.2-1.0) mg/dL AST 44 H (15-37) U/L ALT 37 (16-63) U/L Alkaline Phosphatase 109 (46-116) U/L Total Protein 7.8 (6.4-8.2) g/dL Albumin 3.1 L (3.4-5.0) g/dL Globulin 4.7 Albumin/Globulin Ratio 0.66 Meds: Medications Discontinued Medications Generic Name Dose Route Start Last Admin Trade Name Freq PRN Reason Stop Dose Admin Lactated Ringer's 1,000 mls @ 999 mls/hr 10/05/20 12:10 10/05/20 12:22 Ringers, Lactated IV 10/05/20 13:10 999 mls/hr .BOLUS ONE Administration Sodium Chloride 10 ml 10/05/20 12:10 10/05/20 12:22 Sodium Chloride 0.9% 10 Ml Syringe FLUSH 10 ml ASDIRECTED PRN Administration Keep Vein Open Departure - Departure Time of Disposition: 19:00 Disposition: DC/Tfer to [facility] 02 Clinical Impression: Pneumothorax on right, COVID-19 COPD (chronic obstructive pulmonary disease) Qualifiers: COPD type: unspecified COPD Qualified Code(s): J44.9 - Chronic obstructive pulmonary disease, unspecified - Discharge Information *PRESCRIPTION DRUG MONITORING PROGRAM REVIEWED*: Not Applicable *COPY OF PRESCRIPTION DRUG MONITORING REPORT IN PATIENT AVERY: Not Applicable Referrals: PCP,None [Primary Care Provider] - Sepsis Event Note (ED) - Evaluation Sepsis Screening Result: No Definite Risk - Problem List & Annotations (1) Pneumothorax on right SNOMED Code(s): 611233211 Code(s): J93.9 - PNEUMOTHORAX, UNSPECIFIED Status: Acute Priority: High Onset Date: ~10/05/20 (2) COVID-19 SNOMED Code(s): 172712662 Code(s): U07.1 - COVID-19 Status: Chronic Priority: High Annotation/Comment:: Diminished respiratory capacity following severe COVID-19 pneumonia - Problem List Review Problem List Initiated/Reviewed/Updated: Yes - Assessment/Plan Assessment:: 1. 49-year-old gentleman with history of prolonged and severe COVID-19, now with 50% right-sided pneumothorax Plan: I discussed his case with the on-call bilingual kindergarten teacher at [facility]. Due to the complicated nature of Tal's recent illness and the procedures that were performed at [place], the bilingual kindergarten teacher recommended that I consult [facility]. I was able to consult [facility], and talk to Dr. Hurley in pulmonology. He consulted with his entire team, and they recommended that he be transferred via air ambulance to [facility] at the [facility] in [place]. They reported to me that his pneumothorax is significantly larger than the small one that was present upon discharge from the hospital there. With the size of the pneumothorax, they also agreed that having him go by ground transportation would not be appropriate at this time. As the patient is stable, they also concurred with not putting in a chest tube unless his respiratory status changes or he begins to decompensate.
== END 2020-10-05 19:01 ==
LOC: DL.ED 10:53
DX: U07.1 COVID-19 (principal); J93.9 Pneumothorax, unspecified; J44.9 Chronic obstructive pulmonary disease, unspecified; Z72.0 Tobacco use; Z79.899 Other long term (current) drug therapy
CPT/HCPCS: 36415; 71046; 80053; 83605; 85025; 87040; 99284; 99285-25; J7120

== ENCOUNTER 2023-05-31 19:04 | Emergency (ER) | payer SELFPAY ==
[2023-05-31 19:37] VITALS: BP 118/84; PULSE 108
[2023-05-31 20:03] LABS: APPEARANCE,URINE CLEAR (CLEAR); BILIRUBIN,URINE NEGATIVE (NEGATIVE); COLOR,URINE YELLOW (YELLOW); GLUCOSE,URINE NEGATIVE (NEGATIVE); KETONES,URINE NEGATIVE (NEGATIVE); LEUKOCYTE ESTERASE,URINE NEGATIVE (NEGATIVE); NITRITE,URINE NEGATIVE (NEGATIVE); OCCULT BLOOD,URINE NEGATIVE (NEGATIVE); PROTEIN,URINE NEGATIVE (NEGATIVE)
[2023-05-31] MEDS: Albuterol/Ipratropium 3.0-0.5 MG/3 ML Neb Soln NEB ONE (20:12)
[2023-05-31 20:14] LABS: AMPHETAMINES,URINE POSITIVE (NEGATIVE); BARBITURATES,URINE NEGATIVE (NEGATIVE); BENZODIAZEPINE,URINE NEGATIVE (NEGATIVE); MDMA (ECSTASY), URINE POSITIVE (NEGATIVE); METHADONE,URINE NEGATIVE (NEGATIVE); METHAMPHETAMINES,URINE POSITIVE (NEGATIVE); OPIATES,URINE NEGATIVE (NEGATIVE); OXYCODONE,URINE NEGATIVE (NEGATIVE); PHENCYCLIDINE,URINE NEGATIVE (NEGATIVE); TCA,URINE NEGATIVE (NEGATIVE)
[2023-05-31 20:14] LABS: BASOPHILS PERCENT AUTO 0.1 % (0.0-1.0); EOSINOPHILS PERCENT AUTO 0.6 % (1.0-3.0); HEMATOCRIT 41.8 % (40.0-54.0); HEMOGLOBIN 14.3 g/dL (14.0-18.0); LYMPHOCYTES PERCENT AUTO 13.5 % (20.5-50.1); MEAN CORPUSCULAR HEMOGLOBIN 29.2 pg (27.0-34.0); MEAN CORPUSCULAR HGB CONC 34.2 g/dL (33.0-35.0); MEAN CORPUSCULAR VOLUME 85.3 fL (80-100); MONOCYTES PERCENT AUTO 12.4 % (2-8); NEUTROPHILS PERCENT AUTO 73.4 % (42.2-75.2); PLATELET COUNT,PLT 413 10^3/uL (150-450); WHITE BLOOD CELL COUNT,WBC 8.1 10^3/uL (5.0-10.0)
[2023-05-31] MEDS: Sodium Chloride 0.9% 10 ML Syringe FLUSH PRN (20:16)
[2023-05-31 20:31] LABS: CORONAVIRUS COVID-19 NAA NEGATIVE (NEGATIVE); INFLUENZA A NAA NEGATIVE (NEGATIVE); INFLUENZA B NAA NEGATIVE (NEGATIVE); RESPIRATORY SYNCYTIAL VIR NAA NEGATIVE (NEGATIVE)
[2023-05-31 20:34] LABS: PROTHROMBIN TIME 10.1 SEC (9.0-12.0); PTT,PARTIAL THROMBOPLSTIN TIME 28.4 SEC (22.0-34.0)
[2023-05-31 20:35] LABS: A/G RATIO 0.8; ALBUMIN 3.4 g/dL (3.4-5.0); ANION GAP 10.4 mEq/L (7-13); BILIRUBIN TOTAL 0.5 mg/dL (0.2-1.0); BUN/CREATININE RATIO 4.7 (No establ ref range); C-REACTIVE PROTEIN 1.3 ng/dL (<=0.50); CALCIUM 8.7 mg/dL (8.5-10.1); CREATININE 1.07 mg/dL (0.70-1.30); EST CRCL DRUG DOSING (CG) 93.34 mL/min; POTASSIUM,K 4.4 mmol/L (3.5-5.1); PROTEIN TOTAL,TP 7.7 g/dL (6.4-8.2)
[2023-05-31] MEDS: Orphenadrine 60 MG/2 ML Inj IM ONE (20:57)
[2023-05-31] MEDS: methylPREDNISolone Sodium Succinate 125 MG/2 ML SDV IVPUSH ONE (20:57)
== END 2023-05-31 21:07 | disposition home or self-care (01) ==
LOC: DL.ED 19:04
DX: T14.8XXA Other injury of unspecified body region, initial encounter (principal); J44.9 Chronic obstructive pulmonary disease, unspecified; F17.210 Nicotine dependence, cigarettes, uncomplicated; Z21 Asymptomatic human immunodeficiency virus [HIV] infection status; Z86.16 Personal history of COVID-19; X58.XXXA Exposure to other specified factors, initial encounter
CPT/HCPCS: 0241U; 36415; 71045; 80053; 80305; 81003; 82150; 83605; 83690; 85025; 85610; 85730; 86140; 87081; 87430; 96372; 96374; 99284; J2360; J2930; J3490; J7620-GY

== ENCOUNTER 2023-07-06 05:52 | Emergency (ER) | payer MEDICARE ==
[2023-07-06 06:03] VITALS: BP 116/67; PULSE 119
[2023-07-06] MEDS: predniSONE 20 MG Tab PO ONE (06:13)
== END 2023-07-06 07:14 | disposition home or self-care (01) ==
LOC: DL.ED 05:52
DX: J44.9 Chronic obstructive pulmonary disease, unspecified (principal); B20 Human immunodeficiency virus [HIV] disease; F17.200 Nicotine dependence, unspecified, uncomplicated; Z86.16 Personal history of COVID-19; Z79.899 Other long term (current) drug therapy
CPT/HCPCS: 71045; 99283; 99284; J7512

== ENCOUNTER 2024-05-26 17:02 | Emergency (ER) | payer MEDICARE ==
[2024-05-26 17:26] VITALS: BP 132/96; PULSE 89
[2024-05-26] MEDS: Dexamethasone 4 MG/ML SDV IM ONE (17:41)
== END 2024-05-26 17:49 | disposition home or self-care (01) ==
LOC: DL.ED 17:02
DX: R09.1 Pleurisy (principal); J44.9 Chronic obstructive pulmonary disease, unspecified; Z79.899 Other long term (current) drug therapy
CPT/HCPCS: 96372; 99283; J1100